=== PATIENT | male | born 2000 | race Two or more races ===

== ENCOUNTER 2019-02-24 12:56 | Emergency (ER) | payer OTHER ==
[~2019-02-24] VITALS: Ht 177.8 cm; Wt 57.9 kg
--- NOTE | 2019-02-24 14:28 | REP ---
PA and lateral chest: There are no comparisons. There is no pneumothorax, hemothorax or pulmonary contusion. No fractures are identified. The lung maxwell are clear. Cardiac size is normal. The yohannes, mediastinum, skeletal structures are unremarkable. Impression: Negative PA chest. Electronically Signed by Francisco Guthrie MD 02/24/2019 02:19 P
[2019-02-24 15:12] VITALS: BP 118/68
[2019-02-24] MEDS ORDERED: IBUPROFEN 600 MG TAB PO ONE (15:15)
== END 2019-02-24 15:37 | disposition home or self-care (01) ==
LOC: M ED 12:56
DX: S20.211A Contusion of right front wall of thorax, initial encounter (principal); V43.52XA Car driver injured in collision with other type car in traffic accident, initial encounter; Y92.410 Unspecified street and highway as the place of occurrence of the external cause